=== PATIENT | female | born 1995 | race Two or more races ===

== ENCOUNTER 2022-05-10 16:13 | Emergency (ER) | payer OTHER ==
[~2022-05-10] VITALS: Ht 162.6 cm; Wt 90.0 kg
[2022-05-10] MEDS ORDERED: PREDNISONE 20MG TABLET PO ONE (17:45)
[2022-05-10] MEDS ORDERED: FAMOTIDINE 20MG TABLET PO ONE (17:45)
[2022-05-10] MEDS ORDERED: P20 MT (18:33)
[2022-05-10 18:45] VITALS: BP 135/77
== END 2022-05-10 18:47 | disposition home or self-care (01) ==
LOC: ER 17:15
DX: T78.40XA Allergy, unspecified, initial encounter (principal); X58.XXXA Exposure to other specified factors, initial encounter; L50.9 Urticaria, unspecified; E11.9 Type 2 diabetes mellitus without complications
CPT/HCPCS: 99283; J7512